=== PATIENT | female | born 1980 | race Two or more races ===

== ENCOUNTER → 2019-11-06 | Outpatient (CLI) | payer OTHER ==
[2019-11-06 10:05] LABS: Basophils # (auto) 0.1 uL; Eosinophils # (auto) 0.2 uL; Neutrophils # (auto) 4.5 uL
[2019-11-06 10:07] LABS: Basophils % (auto) 0.9 % (0.0-2.0); Eosinophils % (auto) 2.5 % (0.0-7.0); Hematocrit 38.4 % (36.0-46.0); Hemoglobin 12.7 g/dL (12.2-16.2); Lymphocytes # (auto) 2.3 uL; Lymphocytes % (auto) 29.9 % (10.0-50.0); Mean Corpuscular Hemoglobin 26.8 pg (28.0-32.0); Mean Corpuscular Hgb Conc. 33.1 g/dL (32.0-36.0); Mean Corpuscular Volume 80.8 fL (80.0-100.0); Monocytes # (auto) 0.6 uL; Monocytes % (auto) 7.3 % (0.0-12.0); Neutrophils % (auto) 59.4 % (37.0-80.0); Platelet Count (auto) 314 10^3/uL (140-450); Red Blood Cells 4.76 10^6/uL (4.0-5.20); Red Cell Distribution Width 15.7 % (11.8-14.3); White Blood Cell 7.6 10^3/uL (4.4-10.8)
[2019-11-06 10:12] LABS: Urine Bacteria NONE SEEN /hpf (None Seen); Urine Blood Negative /uL (Negative); Urine Hyaline Cast FEW /lpf (0 - 2); Urine Mucus FEW (None Seen); Urine Specific Gravity 1.027 (1.001-1.035); Urine WBC 2 /hpf (0 - 5)
[2019-11-06 10:42] LABS: Potassium 4.3 mmol/L (3.5-5.1)
[2019-11-06 10:58] LABS: Albumin 3.6 g/dL (3.4-5.0); Bilirubin, Total 0.2 mg/dL (0.2-1.0); Calcium 8.6 mg/dL (8.5-10.1); Total Protein 7.3 g/dL (6.4-8.2)
== END | disposition home or self-care (01) ==
LOC: LAB 09:36
PROVIDERS: ATTEND Nurse Practitioner
DX: Z00.00 Encounter for general adult medical examination without abnormal findings (principal); E78.5 Hyperlipidemia, unspecified
CPT/HCPCS: 36415; 80053; 80061; 81001; 84443; 85025

== ENCOUNTER → 2020-06-18 | Outpatient (CLI) | payer OTHER ==
[2020-06-18 09:22] LABS: Basophils # (auto) 0.1 10 ^3/uL (0-0.2); Eosinophils # (auto) 0.2 10 ^3/uL (0-0.8); Lymphocytes # (auto) 2.8 10 ^3/uL (0.4-5.4); Lymphocytes % (auto) 28.3 % (10.0-50.0); Mean Corpuscular Volume 81.3 fL (80.0-100.0); Monocytes # (auto) 0.6 10 ^3/uL (0-1.3); Red Cell Distribution Width 15.4 % (11.8-14.3)
[2020-06-18 09:23] LABS: Basophils % (auto) 0.7 % (0.0-2.0); Eosinophils % (auto) 1.6 % (0.0-7.0); Hematocrit 38.1 % (36.0-46.0); Hemoglobin 12.6 g/dL (12.2-16.2); Mean Corpuscular Hemoglobin 26.7 pg (28.0-32.0); Mean Corpuscular Hgb Conc. 32.9 g/dL (32.0-36.0); Neutrophils # (auto) 6.3 10 ^3/uL (1.6-8.6); Neutrophils % (auto) 63.4 % (37.0-80.0); Platelet Count (auto) 343 10^3/uL (140-450); Red Blood Cells 4.69 10^6/uL (4.0-5.20); White Blood Cell 9.9 10^3/uL (4.4-10.8)
[2020-06-18 09:39] LABS: Urine Bacteria NONE SEEN /hpf (None Seen); Urine Blood TRACE /uL (Negative); Urine Mucus FEW (None Seen); Urine Specific Gravity 1.027 (1.001-1.035); Urine WBC 2 /hpf (0 - 5)
[2020-06-18 10:11] LABS: Albumin 3.6 g/dL (3.4-5.0); Calcium 9.3 mg/dL (8.5-10.1); Potassium 4.7 mmol/L (3.5-5.1)
[2020-06-18 10:15] LABS: Bilirubin, Total 0.4 mg/dL (0.2-1.0); Total Protein 7.1 g/dL (6.4-8.2)
== END | disposition home or self-care (01) ==
LOC: LAB 09:02
PROVIDERS: ATTEND Nurse Practitioner
DX: E28.1 Androgen excess (principal); E78.5 Hyperlipidemia, unspecified; R73.9 Hyperglycemia, unspecified; R53.83 Other fatigue
CPT/HCPCS: 36415; 80053; 80061; 81001; 83036; 84443; 85025

== ENCOUNTER → 2020-07-08 | Outpatient (CLI) | payer OTHER ==
[2020-07-08 15:56] LABS: Basophils # (auto) 0.1 10 ^3/uL (0-0.2); Basophils % (auto) 0.7 % (0.0-2.0); Eosinophils # (auto) 0.2 10 ^3/uL (0-0.8); Eosinophils % (auto) 1.5 % (0.0-7.0); Hematocrit 38.2 % (36.0-46.0); Hemoglobin 12.6 g/dL (12.2-16.2); Lymphocytes % (auto) 27.4 % (10.0-50.0); Mean Corpuscular Hemoglobin 26.8 pg (28.0-32.0); Mean Corpuscular Hgb Conc. 32.9 g/dL (32.0-36.0); Mean Corpuscular Volume 81.4 fL (80.0-100.0); Monocytes # (auto) 0.6 10 ^3/uL (0-1.3); Monocytes % (auto) 5.9 % (0.0-12.0); Neutrophils % (auto) 64.5 % (37.0-80.0); Nucleated Red Blood Cells % 0.1 %; Platelet Count (auto) 343 10^3/uL (140-450); Red Blood Cells 4.69 10^6/uL (4.0-5.20); Red Cell Distribution Width 15.1 % (11.8-14.3); White Blood Cell 10.9 10^3/uL (4.4-10.8)
[2020-07-08 16:24] LABS: Calcium 8.7 mg/dL (8.5-10.1); Potassium 3.8 mmol/L (3.5-5.1)
[2020-07-08 16:32] LABS: Bilirubin, Total 0.2 mg/dL (0.2-1.0); CRP High Sensitivity 0.98 mg/dL (< 0.3); Total Protein 7.4 g/dL (6.4-8.2)
== END | disposition home or self-care (01) ==
LOC: LAB 15:24
PROVIDERS: ATTEND Internal Medicine Rheumatology
DX: Z11.1 Encounter for screening for respiratory tuberculosis (principal); M05.79 Rheumatoid arthritis with rheumatoid factor of multiple sites without organ or systems involvement; M32.10 Systemic lupus erythematosus, organ or system involvement unspecified; R94.5 Abnormal results of liver function studies
CPT/HCPCS: 36415; 80053; 85025; 85652; 86038; 86141; 86200; 86225; 86431; 86704; 87340

== ENCOUNTER 2024-06-28 19:50 | Emergency (ER) | payer OTHER ==
[~2024-06-28] VITALS: Ht 152.4 cm; Wt 81.8 kg
[2024-06-28 21:51] LABS: Basophils # (auto) 0.1 10 ^3/uL (0-0.2); Basophils % (auto) 0.9 % (0.0-2.0); Eosinophils # (auto) 0.2 10 ^3/uL (0-0.8); Eosinophils % (auto) 2.5 % (0.0-7.0); Hematocrit 38.8 % (36.0-46.0); Hemoglobin 12.9 g/dL (12.2-16.2); Lymphocytes # (auto) 3.2 10 ^3/uL (0.4-5.4); Mean Corpuscular Hemoglobin 26.2 pg (28.0-32.0); Mean Corpuscular Hgb Conc. 33.2 g/dL (32.0-36.0); Mean Corpuscular Volume 78.9 fL (80.0-100.0); Monocytes # (auto) 0.8 10 ^3/uL (0-1.3); Monocytes % (auto) 8.2 % (0.0-12.0); Neutrophils # (auto) 5.3 10 ^3/uL (1.6-8.6); Neutrophils % (auto) 55.4 % (37.0-80.0); Nucleated Red Blood Cells % 0.1 %; Platelet Count (auto) 302 10^3/uL (140-450); Red Blood Cells 4.91 10^6/uL (4.0-5.20); Red Cell Distribution Width 15.7 % (11.8-14.3); White Blood Cell 9.7 10^3/uL (4.4-10.8)
[2024-06-28 22:05] LABS: INR 0.94 (0.9-1.15); Partial Thromboplastin Time 28.4 SEC (24.5-34.5)
[2024-06-28 22:14] LABS: Alanine Aminotransferase 55 U/L (7-40); Albumin 4.4 g/dL (3.2-4.8); Alkaline Phosphatase 109 U/L (46-116); Anion Gap 7 (5-15); Aspartate Aminotransferase 27 U/L (13-40); BUN/Creatinine Ratio 12.9 (10.0-20.0); Bilirubin, Total 0.2 mg/dL (0.2-1.0); Blood Urea Nitrogen 11 mg/dL (9-23); Calcium 9.5 mg/dL (8.7-10.4); Carbon Dioxide 25 mmol/L (20-30); Chloride 107 mmol/L (98-107); Glucose 117 mg/dL (74-106); Potassium 3.9 mmol/L (3.5-5.1); Sodium 139 mmol/L (136-145)
[2024-06-28 22:16] VITALS: TEMP 98.8
[2024-06-28 22:21] VITALS: PULSE 71; RESP 15; O2SAT 97
[2024-06-28 23:30] LABS: Urine Bacteria None Seen /hpf (None Seen)
[2024-06-28 23:48] LABS: Urine Amorphous Crystal FEW /hpf (None Seen); Urine Blood Negative /uL (Negative); Urine Clarity Clear (Clear); Urine Color Light-Yellow (Yellow); Urine Protein, UAD Negative (Negative); Urine Specific Gravity 1.014 (1.001-1.035); Urine Urobilinogen Normal (Negative); Urine WBC 4 /hpf (0 - 5)
[2024-06-29] MEDS ORDERED: NITR-87 PO (03:10)
[2024-06-29] MEDS: NITROFURANTOIN 100 mg CAP PO ONE ×2 (03:15→04:05)
[2024-06-29 04:00] VITALS: BP 109/59; PULSE 77; RESP 15; O2SAT 97
== END 2024-06-29 04:07 | disposition home or self-care (01) ==
LOC: EDBD 19:50 → EDSEX 19:50 → ER 19:50
DX: N39.0 Urinary tract infection, site not specified (principal); R10.2 Pelvic and perineal pain; R53.1 Weakness; R53.83 Other fatigue; R55 Syncope and collapse; M19.90 Unspecified osteoarthritis, unspecified site; I10 Essential (primary) hypertension; Z88.0 Allergy status to penicillin
CPT/HCPCS: 36415; 70450; 71045; 80053; 81001; 82962; 84484; 84702; 85025; 85610; 85730; 93005